=== PATIENT | male | born 1970 | race Caucasian/White ===

== ENCOUNTER 2017-07-06 14:10 | Inpatient (IN) | payer BC, OTHER ==
[2017-07-06] VITALS (9 sets, daily range): BP systolic 116–138; BP diastolic 58–87; PULSE 63–89; RESP 16–18; TEMP 97.5; Ht 170.2 cm; Wt 75.0 kg
[~2017-07-06] VITALS: Ht 170.2 cm; Wt 75.0 kg
[~2017-07-06 14:10] MED LIST: ABAC1TAB PO; ALBU8.5H3 IH; GABA300C PO; HYDR25TA6 PO; MIRT30TA PO; MULT1TAB59 PO; QUET50TA16 PO; TENO300T2 PO
[2017-07-06] MEDS ORDERED: SOD CHLORIDE 0.9% 1,000 ML IV STA (14:14)
[2017-07-06 14:47] LABS: ABNORMAL IP MESSAGE 1; BASOPHILS % 0.7 % (0.0-2.0); EOSINOPHILS # 0.4 10^3/ul (0.0-0.5); EOSINOPHILS % 7.6 % (0.0-7.0); HEMATOCRIT 25.4 % (42.0-52.0); MEAN CORPUSCULAR HEMOGLOBIN 19.8 pg (29.0-33.0); MEAN CORPUSCULAR HGB CONC 27.6 g/dl (32.0-37.0); MEAN PLATELET VOLUME 9.7 fl (7.4-10.4); MONOCYTE # 0.6 10^3/ul (0.3-0.9); MONOCYTES % 10.9 % (0.0-11.0); NEUTROPHILS % 43.6 % (39.0-77.0); PLATELET COUNT 84 10^3/UL (140-415); POSITIVE DIFF @See below; RED BLOOD COUNT 3.53 10^6/ul (4.70-6.10); RED CELL DISTRIBUTION WIDTH 22.8 % (11.5-14.5); WHITE BLOOD COUNT 5.5 10^3/ul (4.8-10.8)
[2017-07-06] MEDS ORDERED: SOD CHLORIDE 0.9% 250 ML IV ONE (14:53)
--- NOTE | 2017-07-06 14:59 | ERA ---
ER Documentation Chief Complaint Date/Time DATE: 07/06/17 TIME: 14:54 Chief Complaint BIB [facility] FOR ETOH. PT FOUND IN STREET WITH ALCOHOL BOTTLES NEAR BY HPI Patient is a 48-year-old and approximately 48-year-old male who presents altered. He was found in the street with alcohol bottles nearby. He was brought in by ambulance. History and physical exam is limited at this time secondary to patient's altered mental status. ROS All systems reviewed and are negative except as per history of present illness. Medications Home Meds Unable to Obtain Active Prescriptions or Reported Meds Allergies Allergies: Coded Allergies: Unknown: Unable to obtain (Unverified , 07/06/17) PT UNRESPONSIVE PMhx/Soc Medical and Surgical Hx: Unable to obtain Hx Alcohol Use: Yes Hx Substance Use: No Hx Tobacco Use: No Smoking Status: Unknown if ever smoked FmHx Unable to obtain Physical Exam Vitals Vital Signs Date Time Temp Pulse Resp B/P Pulse Ox O2 Delivery O2 Flow Rate FiO2 07/06/17 14:21 98.3 89 19 130/70 94 Physical Exam Const: Altered Head: Atraumatic Eyes: Normal Conjunctiva ENT: Normal External Ears, Nose and Mouth. Neck: Full range of motion..~ No meningismus. Resp: Clear to auscultation bilaterally Cardio: Regular rate and rhythm, no murmurs Abd: Soft, non tender, non distended. Normal bowel sounds Skin: No petechiae or rashes Back: No midline or flank tenderness Ext: No cyanosis, or edema Neur: Patient is altered and likely intoxicated, he does try to push away my hand with sternal rub Result Diagram: 07/06/17 1435 Results 24 hrs Laboratory Tests Test 07/06/17 14:35 White Blood Count 5.510^3/ul Red Blood Count 3.5310^6/ul Hemoglobin 7.0g/dl Hematocrit 25.4% Mean Corpuscular Volume 72.0fl Mean Corpuscular Hemoglobin 19.8pg Mean Corpuscular Hemoglobin Concent 27.6g/dl Red Cell Distribution Width 22.8% Platelet Count 8410^3/UL Mean Platelet Volume 9.7fl Neutrophils % 43.6% Lymphocytes % 37.0% Monocytes % 10.9% Eosinophils % 7.6% Basophils % 0.7% Nucleated Red Blood Cells % 0.0/100WBC Neutrophils # (Manual) 2.410^3/ul Lymphocytes # 2.010^3/ul Monocytes # 0.610^3/ul Eosinophils # 0.410^3/ul Basophils # 0.010^3/ul Nucleated Red Blood Cells # 0.010^3/ul Current Medications Medications (Trade) Dose Ordered Sig/Calixto Route PRN Reason Start Time Stop Time Status Last Admin Dose Admin Sodium Chloride (NS) 1,000 ml @ 1,000 mls/hr Q1H STAT IV 07/06/17 14:14 07/06/17 15:13 Procedures/MDM CT brain is pending at this time. Patient is an approximately 48-year-old male who presents altered. This is most likely due to alcohol intoxication and we will confirm with laboratory studies. However I am also concerned for potential intracranial hemorrhage and therefore a CT scan of the brain was ordered and is pending at this time. Routine laboratory studies the patient was found to have acute anemia with a hemoglobin of 7.0 and will need 2 units of packed red blood cells for transfusion. The patient will need admission to the hospital as well. The patient will be signed out the oncoming physician for final disposition and admission. Critical Care: Time: 35 minutes excluding all billable procedures. Treatments/Evaluations: Close monitoring and treatment of unstable vital signs, cardiorespiratory, and neurologic status, while maintaining tight balance of fluid, respiratory, and cardiac interventions. Departure Diagnosis: Primary Impression: Anemia Qualified Code: D64.9 - Anemia, unspecified type Additional Impressions: Alcoholic intoxication Qualified Code: F10.921 - Alcohol intoxication with delirium Altered mental status Qualified Code: R41.82 - Altered mental status, unspecified altered mental status type Condition: AMANDA Artis MD Jul 06, 2017 14:59
[2017-07-06 15:07] LABS: ACETAMINOPHEN < 10.0 ug/ml (10.0-30.0); ALANINE AMINOTRANSFERASE 37 IU/L (13-69); ALBUMIN 3.3 g/dl (3.3-4.9); ALBUMIN/GLOBULIN RATIO 0.86; ALKALINE PHOSPHATASE 90 IU/L (42-121); ANION GAP 14 (8-16); ASPARTATE AMINO TRANSFERASE 54 IU/L (15-46); BILIRUBIN,INDIRECT 0.2 mg/dl (0-1.1); BILIRUBIN,TOTAL 0.2 mg/dl (0.2-1.3); BLOOD UREA NITROGEN 5 mg/dl (7-20); CALCIUM 7.6 mg/dl (8.4-10.2); CARBON DIOXIDE 24 mmol/L (21-31); CHLORIDE 105 mmol/L (97-110); CREATININE 0.56 mg/dl (0.61-1.24); GLUCOSE 94 mg/dl (70-220); SALICYLATE < 1.0 mg/dl (5.0-30.0); SODIUM 140 mmol/L (135-144); TOTAL PROTEIN 7.1 g/dl (6.1-8.1)
--- NOTE | 2017-07-06 15:14 | RADRPT ---
PROCEDURE: CT Brain without contrast. CLINICAL INDICATION: Altered level of consciousness. TECHNIQUE: A CT of the brain was performed on a [employer] CT scanner utilizi ng a low dose technique with axial imaging from the skull base through the vertex without IV contras t. Multiplanar reformatted images were made. Images were reviewed on a PACS workstation. The CTDI vol is 43.5 mGy and the DLP is 720.2 mGycm. One or more of the following dose reduction techniques were used: - Automated exposure control. - Adjustment of the mA and/or kV according to patient size. Use of iterative reconstruction technique. COMPARISON: No. FINDINGS: The fourth ventricle is normal in size. The third lateral ventricles are dilated with proportional sulcal dilatation noted. There is encephalomalacia in the watershed zone between the distributions of the left middle cerebral artery and left posterior cerebral arteries. There are chronic small ve ssel ischemic changes in the periventricular white matter tracts adjacent to the lateral ventricles. No intracranial mass or hemorrhage is identified. The visible portions of the globes and extraocular muscles are normal. There is minimal mucosal thic kening in the ethmoid air cells. The remaining portions of the paranasal sinuses are clear. IMPRESSION: 1. Cerebral atrophy with encephalomalacia in the watershed zone in the dorsal left parietal and lef t occipital areas. 2. No acute cortical ischemic changes are identified and no intracranial hemorrhage or mass is note d. Findings were phoned to Dr. Clyde Ceballos at 03:10 p.m.. RPTAT:AAJJ Physician Artem Date Time Electronically viewed and signed by Physician Artem on 07/06/2017 15:14 ALANA/
[2017-07-06] MEDS ORDERED: ONDANSETRON 4 MG INJ IV PRN (15:30)
[2017-07-06] MEDS ORDERED: ACETAMINOPHEN 325 MG TAB PO PRN (15:30)
--- NOTE | 2017-07-06 15:35 | RADRPT ---
PROCEDURE: CT cervical spine without contrast. CLINICAL INDICATION: Neck pain TECHNIQUE: CT of the cervical spine without contrast was performed on a multidetector CT scanner, w ith multiplanar reformats. One or more of the following dose reduction techniques were used: Automa adarsh exposure control, adjustment in mA and / or kV according to patient size, use of iterative recon structive technique. CTDIvol = 22 mGy and DLP = 419 mGy-cm. COMPARISON: None available. FINDINGS: No fracture or dislocation is identified. There is straightening of the lordosis of the cervical sp ine. Alignment is intact. The vertebral bodies are maintained in height. There are anterior atla ntoaxial joint degenerative changes and anterior osteophytes at C3-4 through C7-T1. There is disk s pace narrowing, mild to moderate at C5-6 and C7-T1, mild at C6-7. C2-3: There is posterior disk bulging and facet arthropathy. There is no central canal stenosis or foraminal narrowing. C3-4: There is a posterior disk/osteophyte with mild central canal stenosis identified. There is f acet arthropathy without foraminal narrowing. C4-5: There is a posterior disk/osteophyte without central canal stenosis identified. There is face t arthropathy without foraminal narrowing. C5-6: There is posterior disk osteophyte without central canal stenosis identified. There are uncov ertebral osteophytes and facet arthropathy with moderate right foraminal narrowing. C6-7: There is a posterior disk/osteophyte with mild central canal stenosis identified. There are uncovertebral osteophytes and facet arthropathy with moderate to severe right, mild left foraminal n arrowing. C7-T1: No disk bulge or herniation is seen. There is no central canal stenosis. There are uncovert ebral osteophytes and facet arthropathy with moderate right foraminal narrowing. IMPRESSION: 1. No fracture/dislocation. 2. Cervical spondylosis/degenerative enthesopathy, with mild central canal stenosis identified at C 3-4 and C6-7, and multilevel foraminal narrowing detailed above. RPTAT: EE .Andrew Fierro MD, MD Date Time Electronically viewed and signed by .Andrew Fierro MD, on 07/06/2017 15:35 .O/
[2017-07-06] MEDS ORDERED: POTASSIUM CHLORIDE (SR) 20 MEQ TAB PO STA (16:20)
[2017-07-06] MEDS: FOLIC ACID 1 MG TAB PO SCH (16:30)
[2017-07-06 16:37] LABS: IRON 15 ug/dl (35-150)
[2017-07-06 16:46] LABS: TOTAL IRON BINDING CAPACITY 338 ug/dl (241-421)
--- NOTE | 2017-07-06 18:06 | HP ---
Date/Time of Note Date/Time of Note DATE: 07/06/17 TIME: 17:59 Assessment/Plan VTE Prophylaxis VTE Prophylaxis Intervention: contraindicated Assessment/Plan Chief Complaint/Hosp Course Middle aged male with unknown medical history presenting intoxicated and stuporous, found to have profound microcytic likely iron deficiency anemia and thrombocytopenia Anemia of iron deciency, thrombocytopenia: - Needs endoscopy to r/o GI bleeding - No stigmata of cirrhosis and LFTs not suggestive, will obtain abd US to look for radiographic evidence of cirrhosis/portal hypertension Etoh intoxication: - Supportive care - Monitor for withdrawal - Thiamine, folate, MVI Hypokalemia: - Replete K Alcoholic hepatitis: - Clinically mild, no need for steroids - Trend LFTs Dispo plan pending improvmeent in condition Problems: HPI/ROS Admit Date/Time Admit Date/Time Hx of Present Illness Patient is a middle aged male (48 per chart, but not clear) who was found intoxicated and obtunded on the street and subsequently brought to the ED. He is clearly intoxicated with alcohol. He is very somnulenet and unable to provide a coherent history, but is in no distress. His labs are notable for profound microcytic anemia for which he has been transfused PRBCs, as well as elevated etoh level and thrombocytopenia ROS Constitutional: improved, no complaints Eyes: no complaints ENT: no complaints Respiratory: no complaints Cardiovascular: no complaints Gastrointestinal: no complaints Genitourinary: no complaints Musculoskeletal: no complaints Skin: no complaints Neurologic: no complaints Endocrine: no complaints Lymphatic: no complaints Psychological: nl mood/affect, no complaints Immunologic: no complaints PMH/Family/Social Past Medical History Medical History: other Past Surgical History Past Surgical Hx: other Social History Alcohol Use: heavy Smoking Status: Unknown if ever smoked Exam/Review of Systems Vital Signs Vitals Vital Signs Date Time Temp Pulse Resp B/P Pulse Ox O2 Delivery O2 Flow Rate FiO2 07/06/17 14:21 98.3 89 19 130/70 94 Exam Exam Dishevelled, malodorous Stuporous, lethargic Breathing comfortably Easily arousable to noxious stimuli Wihtdraws to pain in all extremities Pupils reactive b/l No edema Abdomen is soft, nt, nd Bedside US shows no ascites No obvious stigmata of cirrhosis Labs Result Diagram: 07/06/17 1435 07/06/17 1435 Medications Medications Current Medications Thiamine HCl (Vitamin B1) 500 mg BID PO ; Start 07/06/17 at 21:00 Folic Acid (Folic Acid) 1 mg DAILY PO ; Start 07/06/17 at 16:30 Multivitamins Therapeutic (Theragran) 1 tab DAILY PO ; Start 07/07/17 at 09:00 ANAYA CONCEPCION MD Jul 06, 2017 18:06
[2017-07-06] MEDS ORDERED: POTASSIUM CHLORIDE 250 ML IVPB ONE (19:00)
[2017-07-06] MEDS: THIAMINE 100 MG TAB PO SCH (21:00)
[2017-07-06] MEDS ORDERED: LORAZEPAM 2 MG INJ IV PRN (21:30)
[2017-07-06] MEDS: SOD FERRIC GLUC COMPLX 125 MG in SOD CHLORIDE 0.9% 100 ML IVPB SCH (22:45)
[2017-07-06] MEDS: SOD CHLORIDE 0.9% 1,000 ML IV SCH (22:47)
[2017-07-07] VITALS (9 sets, daily range): BP systolic 123–212; BP diastolic 71–121; PULSE 80–109; RESP 18–20
[2017-07-07 05:32] LABS: ABNORMAL IP MESSAGE 1; BASOPHIL # 0.1 10^3/ul (0.0-0.1); BASOPHILS % 2.3 % (0.0-2.0); EOSINOPHILS # 0.3 10^3/ul (0.0-0.5); HEMATOCRIT 31.3 % (42.0-52.0); HEMOGLOBIN 8.8 g/dl (14.0-18.0); LYMPHOCYTES # 0.8 10^3/ul (0.8-2.9); LYMPHOCYTES % 29.3 % (15.0-51.0); MEAN CORPUSCULAR HEMOGLOBIN 21.1 pg (29.0-33.0); MEAN CORPUSCULAR HGB CONC 28.1 g/dl (32.0-37.0); MEAN CORPUSCULAR VOLUME 74.9 fl (82.0-101.0); MONOCYTE # 0.3 10^3/ul (0.3-0.9); MONOCYTES % 11.6 % (0.0-11.0); NEUTROPHILS % 46.4 % (39.0-77.0); PLATELET COUNT 80 10^3/UL (140-415); POSITIVE DIFF @See below; RED BLOOD COUNT 4.18 10^6/ul (4.70-6.10); RED CELL DISTRIBUTION WIDTH 22.7 % (11.5-14.5); WHITE BLOOD COUNT 2.6 10^3/ul (4.8-10.8)
[2017-07-07 05:39] LABS: INR 1.03; PROTIME 13.5 Sec (12.2-14.2); PT RATIO 1.1
[2017-07-07 05:46] LABS: ALBUMIN/GLOBULIN RATIO 0.83; BILIRUBIN,INDIRECT 0.3 mg/dl (0-1.1); BILIRUBIN,TOTAL 0.3 mg/dl (0.2-1.3); CALCIUM 7.4 mg/dl (8.4-10.2); CREATININE 0.54 mg/dl (0.61-1.24); POTASSIUM 4.2 mmol/L (3.5-5.1); TOTAL PROTEIN 6.6 g/dl (6.1-8.1)
[2017-07-07] MEDS: FOLIC ACID 1 MG TAB PO SCH (09:00)
[2017-07-07] MEDS: THIAMINE 100 MG TAB PO SCH ×2 (09:00→20:38)
[2017-07-07] MEDS ORDERED: MULTIVITAMINS THERAPEUTIC TAB PO SCH (09:00)
--- NOTE | 2017-07-07 09:32 | RADRPT ---
PROCEDURE: Right Upper Quadrant Ultrasound. CLINICAL INDICATION: Cirrhosis TECHNIQUE: Multiple real-time images were acquired of the patient's right upper quadrant abdomen a nd retroperitoneum utilizing a high resolution transducer. COMPARISON: None FINDINGS: The liver measures 13.5 cm, and demonstrates moderately increased echogenicity. The main portal vein is patent with proper directional flow. There is no intrahepatic biliary ductal dilatation. The ext rahepatic common bile duct measures 4 mm. There is cholelithiasis. There is no gallbladder wall thickening or pericholecystic fluid. The visualized pancreas is unremarkable. The right kidney measures 11.3 cm and demonstrates normal echotexture. There is no right hydronephro sis. There are shadowing echogenic lesions measuring up to 10 mm and 9 mm in the midpole of the right kid moustapha which may be nonobstructing calculi. There is a 2.1 cm simple cyst projecting off the midpole of the right kidney. There is a 2.2 cm simple cyst projecting off the mid to lower pole of the right kidney. The visualized abdominal aorta and IVC are grossly unremarkable. IMPRESSION: Moderate fatty infiltration of the liver. Cholelithiasis without evidence of acute cholecystitis. Normal CBD. Possible nonobstructing right renal calculi measuring up to 1 cm. No right hydronephrosis. Simple right renal cysts measuring up to 2.2 cm. RPTAT: EE Physician Soy Date Time Electronically viewed and signed by Physician Soy on 07/07/2017 09:32 /
[2017-07-07] MEDS: MULTIVITAMINS 10 ML, THIAMINE 100 MG, FOLIC ACID 1 MG in SOD CHLORIDE 0.9% 1,000 ML IVPB SCH (09:36)
[2017-07-07] MEDS: SOD CHLORIDE 0.9% 1,000 ML IV SCH ×2 (10:00→22:30)
--- NOTE | 2017-07-07 15:11 | PN ---
Date/Time of Note Date/Time of Note DATE: 07/07/17 TIME: 15:07 Assessment/Plan VTE Prophylaxis VTE Prophylaxis Intervention: contraindicated, LMWH Lines/Catheters IV [facility] (from [facility] Peripheral IV Urinary Cath still in place: No Assessment/Plan Chief Complaint/Hosp Course 48 y/o male with h/o HIV, etoh use disorder who presented intoxicated and stuporous, found to have profound microcytic likely iron deficiency anemia and thrombocytopenia Anemia of iron deciency - Needs endoscopy to r/o GI bleeding Pancytopenai w leukopenia, thrombocytopenia: - Likely a result of HIV infection, alcoholism - No evidence of cirrhosis on US HIV: - Need to determine home meds - Will send PCR and CD4 count Etoh intoxication: - Supportive care - Monitor for withdrawal - Thiamine, folate, MVI - Cessation was counseled Hypokalemia: - Repleted K, resolved Alcoholic hepatitis: - Clinically mild, no need for steroids - Trend LFTs - Fatty liver on imaging Dispo plan pending improvmeent in condition Problems: Subjective 24 Hr Interval Summary Free Text/Dictation Mentation improved today No longer lethargic Admits to drinking vodka daily Says he has HIV, takes ART, can't recall medication names Denies h/o bleeding, melena, hematochezia. Denies knowledge of liver disease Exam/Review of Systems Vital Signs Vitals Vital Signs Date Time Temp Pulse Resp B/P Pulse Ox O2 Delivery O2 Flow Rate FiO2 07/07/17 07:43 98.5 93 18 123/71 93 07/06/17 23:30 Nasal Cannula 2.0 Intake and Output 07/06/17 07/06/17 07/07/17 14:59 22:59 06:59 Intake Total 350 ml 1160 ml Balance 350 ml 1160 ml Exam Alert, disoriented, conversant, calm, pleasant RRR No edema Soft belly,nontender Breathing nonlabored No stigmata of cirrhosis Results Result Diagram: 07/07/17 0429 07/07/17 0429 Results 24 hrs Laboratory Tests Test 07/07/17 04:29 07/07/17 05:22 White Blood Count 2.6 #L Red Blood Count 4.18 L Hemoglobin 8.8 #L Hematocrit 31.3 #L Mean Corpuscular Volume 74.9 L Mean Corpuscular Hemoglobin 21.1 L Mean Corpuscular Hemoglobin Concent 28.1 L Red Cell Distribution Width 22.7 H Platelet Count 80 L Mean Platelet Volume Neutrophils % 46.4 Lymphocytes % 29.3 Monocytes % 11.6 H Eosinophils % 10.0 H Basophils % 2.3 H Nucleated Red Blood Cells % 0.0 Neutrophils # (Manual) 1.2 L Lymphocytes # 0.8 Monocytes # 0.3 Eosinophils # 0.3 Basophils # 0.1 Nucleated Red Blood Cells # 0.0 Prothrombin Time 13.5 Prothrombin Time Ratio 1.1 INR International Normalized Ratio 1.03 Sodium Level 146 H Potassium Level 4.2 Chloride Level 112 H Carbon Dioxide Level 25 Anion Gap 13 Blood Urea Nitrogen 3 L Creatinine 0.54 L Glucose Level 74 Calcium Level 7.4 L Total Bilirubin 0.3 Direct Bilirubin 0.00 Indirect Bilirubin 0.3 Aspartate Amino Transf (AST/SGOT) 62 H Alanine Aminotransferase (ALT/SGPT) 32 Alkaline Phosphatase 86 Total Protein 6.6 Albumin 3.0 L Globulin 3.60 H Albumin/Globulin Ratio 0.83 Lab Scanned Report BLOOD TRANSFUSION Medications Medications Current Medications Thiamine HCl (Vitamin B1) 500 mg BID PO ; Start 07/06/17 at 21:00 Folic Acid (Folic Acid) 1 mg DAILY PO ; Start 07/06/17 at 16:30 Multivitamins Therapeutic 1 tab 1 tab DAILY PO ; Start 07/07/17 at 09:00; Status Future Hold Ferric Sodium Gluconate Complex/ Sodium Chloride (Ferrlecit/NS) 110 ml @ 110 mls/hr Q24H IVPB Last administered on 07/06/17 22:45; Admin Dose 110 MLS/HR; Start 07/06/17 at 21:00; Stop 07/10/17 at 21:59 Lorazepam 1 mg 1 mg Q4 PRN IV CONTROL WITHDRAWAL SYMPTOMS; Start 07/06/17 at 21: 30 Sodium Chloride 1,000 ml @ 80 mls/hr [id number] IV Last administered on 07/06/17 22:47; Admin Dose 80 MLS/HR; Start 07/06/17 at 21:30 Multivitamins/ Thiamine HCl/ Folic Acid/Sodium Chloride (Mvi Adult/ Vitamin B1/ Folic Acid/NS) 1,011.2 ml @ 125 mls/ hr DAILY@09 IVPB Last administered on 07/07 09:36; Admin Dose 125 MLS/HR; Start 07/07/17 at 09:00 ANAYA CONCEPCION MD Jul 07, 2017 15:11
--- NOTE | 2017-07-07 19:11 | CONS ---
Date/Time of Note Date/Time of Note DATE: 07/07/17 TIME: 19:02 Assessment/Plan Assessment/Plan Additional Assessment/Plan Assessment: * Anemia/multifactorial * Rule out GI bleeding * Pancytopenia * HIV infection * Alcohol abuse * Alcohol intoxication Plan: * EGD tomorrow. Patient informed * Monitor H&H, transfuse as necessary Consultation Date/Type/Reason Admit Date/Time Date of Consultation: Jul 07, 2017 Hx of Present Illness Patient is a 48-year-old male who was hospitalized yesterday as Kam Stafford, severely intoxicated and unable to provide any history. He was found to have significant anemia requiring blood transfusion. There is no history of documentation of GI bleeding. This morning the patient while. He has a significant history for HIV infection which has been treated but the reliability of this information is questionable he also has been shown to have significant pancytopenia. There is still no evidence of gastrointestinal bleeding. There is clear evidence of alcoholic liver disease and chronic alcohol abuse. Patient will be evaluated endoscopically tomorrow Not obtainable Eyes: no complaints ENT: no complaints Respiratory: no complaints Cardiovascular: no complaints Gastrointestinal: no complaints Genitourinary: no complaints Musculoskeletal: no complaints Skin: no complaints Neurologic: no complaints Lymphatic: no complaints Psychological: nl mood/affect, no complaints Immunologic: no complaints Past Medical History HIV infection Alcohol abuse Medical History: other Past Surgical History Past Surgical Hx: no surgical history, other Family History Significant Family History: no pertinent family hx Social History Alcohol Use: heavy Smoking Status: Unknown if ever smoked Drug Use: other (None) Exam/Review of Systems Vital Signs Vitals Vital Signs Date Time Temp Pulse Resp B/P Pulse Ox O2 Delivery O2 Flow Rate FiO2 07/07/17 15:57 98.0 70 19 156/91 97 07/06/17 23:30 Nasal Cannula 2.0 Intake and Output 07/06/17 07/06/17 07/07/17 15:00 23:00 07:00 Intake Total 350 ml 1160 ml Balance 350 ml 1160 ml Exam Constitutional: alert, well developed, No distress, No oriented Head: normocephalic Neck: non-tender, supple Respiratory: clear to auscultation, normal air movement Cardiovascular: nl pulses, regular rate and rhythm Gastrointestinal: bowel sounds, distended, soft, No ascites, No firm, No tender Musculoskeletal: nl extremities to inspection Results Result Diagram: 07/07/17 0429 07/07/17 0429 Results 24 hrs Laboratory Tests Test 07/07/17 04:29 07/07/17 05:22 White Blood Count 2.6 #L Red Blood Count 4.18 L Hemoglobin 8.8 #L Hematocrit 31.3 #L Mean Corpuscular Volume 74.9 L Mean Corpuscular Hemoglobin 21.1 L Mean Corpuscular Hemoglobin Concent 28.1 L Red Cell Distribution Width 22.7 H Platelet Count 80 L Mean Platelet Volume Neutrophils % 46.4 Lymphocytes % 29.3 Monocytes % 11.6 H Eosinophils % 10.0 H Basophils % 2.3 H Nucleated Red Blood Cells % 0.0 Neutrophils # (Manual) 1.2 L Lymphocytes # 0.8 Monocytes # 0.3 Eosinophils # 0.3 Basophils # 0.1 Nucleated Red Blood Cells # 0.0 Prothrombin Time 13.5 Prothrombin Time Ratio 1.1 INR International Normalized Ratio 1.03 Sodium Level 146 H Potassium Level 4.2 Chloride Level 112 H Carbon Dioxide Level 25 Anion Gap 13 Blood Urea Nitrogen 3 L Creatinine 0.54 L Glucose Level 74 Calcium Level 7.4 L Total Bilirubin 0.3 Direct Bilirubin 0.00 Indirect Bilirubin 0.3 Aspartate Amino Transf (AST/SGOT) 62 H Alanine Aminotransferase (ALT/SGPT) 32 Alkaline Phosphatase 86 Total Protein 6.6 Albumin 3.0 L Globulin 3.60 H Albumin/Globulin Ratio 0.83 Lab Scanned Report BLOOD TRANSFUSION Medications Medications Current Medications Thiamine HCl (Vitamin B1) 500 mg BID PO ; Start 07/06/17 at 21:00 Folic Acid (Folic Acid) 1 mg DAILY PO ; Start 07/06/17 at 16:30 Multivitamins Therapeutic 1 tab 1 tab DAILY PO ; Start 07/07/17 at 09:00; Status Future Hold Ferric Sodium Gluconate Complex/ Sodium Chloride (Ferrlecit/NS) 110 ml @ 110 mls/hr Q24H IVPB Last administered on 07/06/17 22:45; Admin Dose 110 MLS/HR; Start 07/06/17 at 21:00; Stop 07/10/17 at 21:59 Lorazepam 1 mg 1 mg Q4 PRN IV CONTROL WITHDRAWAL SYMPTOMS; Start 07/06/17 at 21: 30 Sodium Chloride 1,000 ml @ 80 mls/hr [id number] IV Last administered on 07/06/17 22:47; Admin Dose 80 MLS/HR; Start 07/06/17 at 21:30 Multivitamins/ Thiamine HCl/ Folic Acid/Sodium Chloride (Mvi Adult/ Vitamin B1/ Folic Acid/NS) 1,011.2 ml @ 125 mls/ hr DAILY@09 IVPB Last administered on 07/07 09:36; Admin Dose 125 MLS/HR; Start 07/07/17 at 09:00 GIL SWENSON MD Jul 07, 2017 19:11
[2017-07-07] MEDS: SOD FERRIC GLUC COMPLX 125 MG in SOD CHLORIDE 0.9% 100 ML IVPB SCH (20:38)
[2017-07-07 21:55] LABS: ADD UMIC NO; UR ASCORBIC ACID NEGATIVE (NEGATIVE); UR BILIRUBIN (Dip) NEGATIVE (NEGATIVE); UR BLOOD (Dip) NEGATIVE (NEGATIVE); UR CLARITY CLEAR (CLEAR); UR COLOR YELLOW (YELLOW); UR GLUCOSE (Dip) NEGATIVE (NEGATIVE); UR KETONES (Dip) NEGATIVE (NEGATIVE); UR LEUKOCYTE ESTERASE (Dip) NEGATIVE Leu/ul (NEGATIVE); UR NITRITE (Dip) NEGATIVE (NEGATIVE); UR SPECIFIC GRAVITY (Dip) 1.004 (1.003-1.030); UR TOTAL PROTEIN (Dip) NEGATIVE (NEGATIVE); UR UROBILINOGEN (Dip) 2+ mg/dL (NEGATIVE)
[2017-07-07 22:14] LABS: CANNABINOIDS Negative (NEGATIVE)
[2017-07-07 22:17] LABS: BARBITURATES Negative (NEGATIVE); BENZODIAZEPINES Negative (NEGATIVE); COCAINE Negative (NEGATIVE); OPIATES Negative (NEGATIVE)
[2017-07-08] VITALS (12 sets, daily range): BP systolic 114–147; BP diastolic 61–93; PULSE 66–91; RESP 18–19
[2017-07-08] MEDS: CHLORDIAZEPOXIDE 25 MG CAP PO SCH ×4 (00:30→13:00)
[2017-07-08 07:43] LABS: ABNORMAL IP MESSAGE 1; BASOPHIL # 0.1 10^3/ul (0.0-0.1); BASOPHILS % 1.5 % (0.0-2.0); EOSINOPHILS # 0.3 10^3/ul (0.0-0.5); EOSINOPHILS % 6.7 % (0.0-7.0); HEMATOCRIT 35.6 % (42.0-52.0); HEMOGLOBIN 10.4 g/dl (14.0-18.0); LYMPHOCYTES % 20.6 % (15.0-51.0); MEAN CORPUSCULAR HEMOGLOBIN 21.6 pg (29.0-33.0); MEAN CORPUSCULAR HGB CONC 29.2 g/dl (32.0-37.0); MONOCYTE # 0.5 10^3/ul (0.3-0.9); MONOCYTES % 10.3 % (0.0-11.0); NEUTROPHILS % 60.7 % (39.0-77.0); PLATELET COUNT 57 10^3/UL (140-415); POSITIVE DIFF @See below; RED BLOOD COUNT 4.81 10^6/ul (4.70-6.10); RED CELL DISTRIBUTION WIDTH 22.6 % (11.5-14.5); WHITE BLOOD COUNT 4.8 10^3/ul (4.8-10.8)
[2017-07-08 08:15] LABS: ALANINE AMINOTRANSFERASE 35 IU/L (13-69); ALBUMIN 3.6 g/dl (3.3-4.9); ALBUMIN/GLOBULIN RATIO 0.94; ALKALINE PHOSPHATASE 138 IU/L (42-121); ANION GAP 8 (8-16); ASPARTATE AMINO TRANSFERASE 110 IU/L (15-46); BILIRUBIN,INDIRECT 0.9 mg/dl (0-1.1); BILIRUBIN,TOTAL 0.9 mg/dl (0.2-1.3); CALCIUM 8.9 mg/dl (8.4-10.2); CARBON DIOXIDE 28 mmol/L (21-31); CHLORIDE 100 mmol/L (97-110); CREATININE 0.56 mg/dl (0.61-1.24); GLUCOSE 91 mg/dl (70-220); POTASSIUM 3.9 mmol/L (3.5-5.1); SODIUM 132 mmol/L (135-144); TOTAL PROTEIN 7.4 g/dl (6.1-8.1)
[2017-07-08 08:29] LABS: BLOOD UREA NITROGEN < 2 mg/dl (7-20)
[2017-07-08] MEDS: NICOTINE (14 MG/24 HR) PATCH TRANSDERM SCH (09:32)
[2017-07-08] MEDS: FOLIC ACID 1 MG TAB PO SCH (09:32)
[2017-07-08] MEDS: THIAMINE 100 MG TAB PO SCH ×2 (09:33→21:05)
[2017-07-08] MEDS: MULTIVITAMINS 10 ML, THIAMINE 100 MG, FOLIC ACID 1 MG in SOD CHLORIDE 0.9% 1,000 ML IVPB SCH (09:36)
[2017-07-08] MEDS: SOD CHLORIDE 0.9% 1,000 ML IV SCH ×2 (11:00→23:30)
--- NOTE | 2017-07-08 14:15 | PN ---
Date/Time of Note Date/Time of Note DATE: 07/08/17 TIME: 14:13 Assessment/Plan VTE Prophylaxis VTE Prophylaxis Intervention: contraindicated Lines/Catheters IV Catheter Type (from [facility]): Saline Lock Urinary Cath still in place: No Assessment/Plan Chief Complaint/Hosp Course 47 y/o male with h/o HIV, etoh use disorder, HCV who presented intoxicated and stuporous, found to have profound microcytic likely iron deficiency anemia and thrombocytopenia, mental status improved as intoxication wears off, but encephelopathic vs dementia Anemia of iron deciency - Needs endoscopy to r/o GI bleeding however patient refusing - Continue IV iron Pancytopenia w leukopenia, thrombocytopenia: - Likely a result of HIV infection, alcoholism - No evidence of cirrhosis on US HIV: - Need to determine home meds - Will send PCR and CD4 count Hepatitis C: - Await PCR Etoh intoxication: - Supportive care - Monitor for withdrawal - Thiamine, folate, MVI - Cessation was counseled Hypokalemia: - Repleted K, resolved Alcoholic hepatitis: - Clinically mild, no need for steroids - Trend LFTs - Fatty liver on imaging Dispo plan pending improvmeent in condition Problems: Subjective 24 Hr Interval Summary Free Text/Dictation Patinet more alert today Refused EGD, no clear explanation why Requests to go home, but cant say where he is now or where his home is or how he would get there Exam/Review of Systems Vital Signs Vitals Vital Signs Date Time Temp Pulse Resp B/P Pulse Ox O2 Delivery O2 Flow Rate FiO2 07/08/17 12:25 91 07/08/17 11:54 98.5 19 114/61 98 07/06/17 23:30 Nasal Cannula 2.0 Intake and Output 07/07/17 07/07/17 07/08/17 14:59 22:59 06:59 Intake Total 3110 ml 540 ml Output Total 2500 ml 1030 ml Balance 610 ml -490 ml Exam ALert, calm, no distress Clearly cognitive impairment Oriented x 0 No signs of etoh withdrawal Constitutional: alert Psych: nl mood/affect, no complaints Head: atraumatic, normocephalic Eyes: EOMI, PERRL, nl conjunctiva, nl lids, nl sclera ENMT: nl external ears & nose, nl lips & teeth, nl nasal mucosa & septum Neck: non-tender, supple Respiratory: clear to auscultation, normal air movement Cardiovascular: nl pulses, regular rate and rhythm Gastrointestinal: nl liver, spleen, non-tender, soft Musculoskeletal: nl extremities to inspection, nl gait and stance Extremities: normal pulses Neurological: COOKER SYRUP II-XII intact, nl mental status, nl speech, nl strength Skin: nl turgor, No rash or lesions Lymph: nl lymph nodes Results Result Diagram: 07/08/17 0716 07/08/17 0716 Results 24 hrs Laboratory Tests Test 07/07/17 19:50 07/08/17 07:16 Urine Color YELLOW Urine Clarity CLEAR Urine pH 9.0 Urine Specific [place] 1.004 Urine Ketones NEGATIVE Urine Nitrite NEGATIVE Urine Bilirubin NEGATIVE Urine Urobilinogen 2+ H Urine Leukocyte Esterase NEGATIVE Urine Hemoglobin NEGATIVE Urine Glucose NEGATIVE Urine Total Protein NEGATIVE Urine Opiates Screen Negative Urine Barbiturates Negative Urine Amphetamines Screen Negative Urine Benzodiazepines Screen Negative Urine Cocaine Screen Negative Urine Cannabinoids Negative White Blood Count 4.8 # Red Blood Count 4.81 Hemoglobin 10.4 L Hematocrit 35.6 L Mean Corpuscular Volume 74.0 L Mean Corpuscular Hemoglobin 21.6 L Mean Corpuscular Hemoglobin Concent 29.2 L Red Cell Distribution Width 22.6 H Platelet Count 57 #L Mean Platelet Volume Neutrophils % 60.7 Lymphocytes % 20.6 Monocytes % 10.3 Eosinophils % 6.7 Basophils % 1.5 Nucleated Red Blood Cells % 0.0 Neutrophils # (Manual) 2.9 Lymphocytes # 1.0 Monocytes # 0.5 Eosinophils # 0.3 Basophils # 0.1 Nucleated Red Blood Cells # 0.0 Sodium Level 132 L Potassium Level 3.9 Chloride Level 100 # Carbon Dioxide Level 28 Anion Gap 8 Blood Urea Nitrogen < 2 L Creatinine 0.56 L Glucose Level 91 Calcium Level 8.9 Total Bilirubin 0.9 Direct Bilirubin 0.00 Indirect Bilirubin 0.9 Aspartate Amino Transf (AST/SGOT) 110 #H Alanine Aminotransferase (ALT/SGPT) 35 Alkaline Phosphatase 138 #H Total Protein 7.4 Albumin 3.6 Globulin 3.80 H Albumin/Globulin Ratio 0.94 Medications Medications Current Medications Thiamine HCl (Vitamin B1) 500 mg BID PO Last administered on 07/08/17 09:33; Admin Dose 500 MG; Start 07/06/17 at 21:00 Folic Acid (Folic Acid) 1 mg DAILY PO Last administered on 07/08/17 09:32; Admin Dose 1 MG; Start 07/06/17 at 16:30 Multivitamins Therapeutic 1 tab 1 tab DAILY PO ; Start 07/07/17 at 09:00; Status Future Hold Ferric Sodium Gluconate Complex/ Sodium Chloride (Ferrlecit/NS) 110 ml @ 110 mls/hr Q24H IVPB Last administered on 07/07/17 20:38; Admin Dose 110 MLS/HR; Start 07/06/17 at 21:00; Stop 07/10/17 at 21:59 Lorazepam 1 mg 1 mg Q4 PRN IV CONTROL WITHDRAWAL SYMPTOMS; Start 07/06/17 at 21: 30 Sodium Chloride 1,000 ml @ 80 mls/hr [id number] IV Last administered on 07/06/17 22:47; Admin Dose 80 MLS/HR; Start 07/06/17 at 21:30 Multivitamins/ Thiamine HCl/ Folic Acid/Sodium Chloride (Mvi Adult/ Vitamin B1/ Folic Acid/NS) 1,011.2 ml @ 125 mls/ hr DAILY@09 IVPB Last administered on 07/08 09:36; Admin Dose 125 MLS/HR; Start 07/07/17 at 09:00 Chlordiazepoxide (Librium) 50 mg TID PO Last administered on 07/08/17 09:32; Admin Dose 50 MG; Start 07/07/17 at 23:00; Stop 07/08/17 at 20:59 Chlordiazepoxide (Librium) 25 mg Q6 PO ; Start 07/09/17 at 00:00; Stop 07/09/17 at 23:59 Chlordiazepoxide (Librium) 25 mg TID PO ; Start 07/10/17 at 09:00; Stop 07/10/17 at 21:01 Nicotine (Nicoderm 14 Mg/ 24hr) 1 patch DAILY TRANSDERM Last administered on 09:32; Admin Dose 1 PATCH; Start 07/08/17 at 09:00 ANAYA CONCEPCION MD Jul 08, 2017 14:15
--- NOTE | 2017-07-08 17:56 | PN ---
Date/Time of Note Date/Time of Note DATE: 07/08/17 TIME: 17:53 Assessment/Plan VTE Prophylaxis VTE Prophylaxis Intervention: SCD's Lines/Catheters [facility] Saline Lock Urinary Cath still in place: No Assessment/Plan Assessment/Plan Assessment: * Anemia/multifactorial * Rule out GI bleeding * Pancytopenia * HIV infection * Alcohol abuse * Alcohol intoxication Plan: * Continue present regimen * We will sign off and follow as needed and upon request Subjective: Course reviewed with nursing staff Patient interviewed and examined All labs, imaging and other results reviewed The patient refused GI workup We will sign off and follow upon request Exam: General: well developed, well nourished, alert and oriented x3 , in no acute distress Skin: No lesions, no stigmata chronic liver disease, no evidence of bleeding diathesis Lymphatic: No palpable lymphadenopathy HEENT: No lesions Cardiovascular: Heart: Regular rate and rhythm, no murmurs, gallops or rubs. Peripheral pulses present within normal limits, no cyanosis, clubbing or edemas. No pulsatile abdominal mass Respiratory: Lungs clear to auscultation and percussion, no wheezing, no rubs Gastrointestinal and Liver: Abdomen: Soft, non tender, non-distended, no hernias , no masses, no organomegaly, no ascites, no guarding, no rebound tenderness, normoactive bowel sounds. Extremities: No cyanosis, clubbing, or edema. Diagnostic Studies: Available data and images were reviewed personally. See reports. Significant results and findings are addressed here or in the assessment and plan. Exam/Review of Systems Vital Signs Vitals Vital Signs Date Time Temp Pulse Resp B/P Pulse Ox O2 Delivery O2 Flow Rate FiO2 07/08/17 16:06 89 07/08/17 15:56 98.4 19 125/68 99 07/06/17 23:30 Nasal Cannula 2.0 Intake and Output 07/07/17 07/07/17 07/08/17 15:00 23:00 07:00 Intake Total 3110 ml 540 ml Output Total 2500 ml 1030 ml Balance 610 ml -490 ml Results Result Diagram: 07/08/17 0716 07/08/17 0716 Results 24 hrs Laboratory Tests Test 07/07/17 19:50 07/08/17 07:16 Urine Color YELLOW Urine Clarity CLEAR Urine pH 9.0 Urine Specific [place] 1.004 Urine Ketones NEGATIVE Urine Nitrite NEGATIVE Urine Bilirubin NEGATIVE Urine Urobilinogen 2+ H Urine Leukocyte Esterase NEGATIVE Urine Hemoglobin NEGATIVE Urine Glucose NEGATIVE Urine Total Protein NEGATIVE Urine Opiates Screen Negative Urine Barbiturates Negative Urine Amphetamines Screen Negative Urine Benzodiazepines Screen Negative Urine Cocaine Screen Negative Urine Cannabinoids Negative White Blood Count 4.8 # Red Blood Count 4.81 Hemoglobin 10.4 L Hematocrit 35.6 L Mean Corpuscular Volume 74.0 L Mean Corpuscular Hemoglobin 21.6 L Mean Corpuscular Hemoglobin Concent 29.2 L Red Cell Distribution Width 22.6 H Platelet Count 57 #L Mean Platelet Volume Neutrophils % 60.7 Lymphocytes % 20.6 Monocytes % 10.3 Eosinophils % 6.7 Basophils % 1.5 Nucleated Red Blood Cells % 0.0 Neutrophils # (Manual) 2.9 Lymphocytes # 1.0 Monocytes # 0.5 Eosinophils # 0.3 Basophils # 0.1 Nucleated Red Blood Cells # 0.0 Sodium Level 132 L Potassium Level 3.9 Chloride Level 100 # Carbon Dioxide Level 28 Anion Gap 8 Blood Urea Nitrogen < 2 L Creatinine 0.56 L Glucose Level 91 Calcium Level 8.9 Total Bilirubin 0.9 Direct Bilirubin 0.00 Indirect Bilirubin 0.9 Aspartate Amino Transf (AST/SGOT) 110 #H Alanine Aminotransferase (ALT/SGPT) 35 Alkaline Phosphatase 138 #H Total Protein 7.4 Albumin 3.6 Globulin 3.80 H Albumin/Globulin Ratio 0.94 Medications Medications Current Medications Thiamine HCl (Vitamin B1) 500 mg BID PO Last administered on 07/08/17 09:33; Admin Dose 500 MG; Start 07/06/17 at 21:00 Folic Acid (Folic Acid) 1 mg DAILY PO Last administered on 07/08/17 09:32; Admin Dose 1 MG; Start 07/06/17 at 16:30 Multivitamins Therapeutic 1 tab 1 tab DAILY PO ; Start 07/07/17 at 09:00; Status Future Hold Ferric Sodium Gluconate Complex/ Sodium Chloride (Ferrlecit/NS) 110 ml @ 110 mls/hr Q24H IVPB Last administered on 07/07/17 20:38; Admin Dose 110 MLS/HR; Start 07/06/17 at 21:00; Stop 07/10/17 at 21:59 Lorazepam 1 mg 1 mg Q4 PRN IV CONTROL WITHDRAWAL SYMPTOMS; Start 07/06/17 at 21: 30 Sodium Chloride 1,000 ml @ 80 mls/hr [id number] IV Last administered on 07/06/17 22:47; Admin Dose 80 MLS/HR; Start 07/06/17 at 21:30 Multivitamins/ Thiamine HCl/ Folic Acid/Sodium Chloride (Mvi Adult/ Vitamin B1/ Folic Acid/NS) 1,011.2 ml @ 125 mls/ hr DAILY@09 IVPB Last administered on 07/08 09:36; Admin Dose 125 MLS/HR; Start 07/07/17 at 09:00 Chlordiazepoxide (Librium) 50 mg TID PO Last administered on 07/08/17 09:32; Admin Dose 50 MG; Start 07/07/17 at 23:00; Stop 07/08/17 at 20:59 Chlordiazepoxide (Librium) 25 mg Q6 PO ; Start 07/09/17 at 00:00; Stop 07/09/17 at 23:59 Chlordiazepoxide (Librium) 25 mg TID PO ; Start 07/10/17 at 09:00; Stop 07/10/17 at 21:01 Nicotine (Nicoderm 14 Mg/ 24hr) 1 patch DAILY TRANSDERM Last administered on 09:32; Admin Dose 1 PATCH; Start 07/08/17 at 09:00 GIL SWENSON MD Jul 08, 2017 17:56
[2017-07-08] MEDS: SOD FERRIC GLUC COMPLX 125 MG in SOD CHLORIDE 0.9% 100 ML IVPB SCH (21:05)
[2017-07-09] VITALS (8 sets, daily range): BP systolic 131–145; BP diastolic 61–89; PULSE 71–93; RESP 17–18
[2017-07-09] MEDS: CHLORDIAZEPOXIDE 25 MG CAP PO SCH ×2 (01:13→06:02)
[2017-07-09] MEDS: SOD CHLORIDE 0.9% 1,000 ML IV SCH (06:09)
[2017-07-09] MEDS: MULTIVITAMINS 10 ML, THIAMINE 100 MG, FOLIC ACID 1 MG in SOD CHLORIDE 0.9% 1,000 ML IVPB SCH (08:47)
[2017-07-09] MEDS: FOLIC ACID 1 MG TAB PO SCH (08:47)
[2017-07-09] MEDS: THIAMINE 100 MG TAB PO SCH (08:47)
[2017-07-09] MEDS: NICOTINE (14 MG/24 HR) PATCH TRANSDERM SCH (08:48)
[2017-07-09 10:51] LABS: LYMPHOCYTE - CD4/CD8 RATIO 1.57 (0.86-5.00)
--- NOTE | 2017-07-09 14:17 | PDOCDIS ---
Discharge Instructions CONDITION Patient Condition: Good HOME CARE INSTRUCTIONS: Diet Instructions: RegularSpecial Diet: REGULAR FOLLOW UP/APPOINTMENTS Follow-up Plan It is very important for you to continue taking your HIV medications forever You have been diagnosed with iron defiency anemia this admission. Most likely, this is due to blood loss from the intestinal track. Though you did not want to undergo endoscopy during this admission, it is still very important to consider doing so because you may have a serious underlying condition. Please take to your doctor about this. If you develop any bleeding in your stool come to the hospital. You should also take an iron supplement daily It is extremely important that you stop drinking alcohol as well ANAYA CONCEPCION MD Jul 09, 2017 14:17
--- NOTE | 2017-07-09 18:07 | DS ---
Date/Time of Note Date/Time of Note DATE: 07/09/17 TIME: 18:04 Discharge Summary Admission/Discharge Info Admit Date/Time Jul 06, 2017 at 15:14 Discharge Date/Time Hx of Present Illness Patient is a middle aged male (48 per chart, but not clear) who was found intoxicated and obtunded on the street and subsequently brought to the ED. He is clearly intoxicated with alcohol. He is very somnulenet and unable to provide a coherent history, but is in no distress. His labs are notable for profound microcytic anemia for which he has been transfused PRBCs, as well as elevated etoh level and thrombocytopenia Hospital Course On presentation, the patient was acutely intoxicated and unable to answer questions. Over the following days his mental status cleared to his baseline. He was found to have a chronic iron deficiency anemia, though denied any recent history of melena, etc that he had noticed. Gastroenterology was consulted who recommended EGD to evaluate. He refuse this procedure. He was given IV iron suppelmentation. He requested to be discharged. I was nervous about him leaving the hospital alone. His mother was contacted who came to the hospital to take him home with her. Home Meds Reported Medications Mirtazapine* (Remeron*) 30 Mg Tablet, 30 MG PO DAILY 01/25/13 Albuterol Sulfate* (Proair HFA*) 8.5 Gm Hfa.aer.ad, 8.5 GM IH DAILY 01/25/13 Multivitamins* (Multivitamins*) 1 Tab Tablet, 1 TAB PO DAILY 01/25/13 Gabapentin* (Neurontin*) 300 Mg Capsule, 300 MG PO DAILY 01/25/13 Tenofovir Disoproxil Fumarate (Viread) 300 Mg Tablet, 300 MG PO DAILY 03/30/12 Hydrochlorothiazide (Hydrochlorothiazide) 25 Mg Tablet, 25 MG PO DAILY 03/30/12 Abacavir/Lamivudine/Zidovudine* (Trizivir*) 1 Tab Tab, 1 TAB PO BID 03/30/12 Quetiapine Fumarate* (Seroquel*) 50 Mg Tablet, 75 MG PO HS 03/30/12 Primary Care Provider Time spent on discharge: > 30 minutes ANAYA CONCEPCION MD Jul 09, 2017 18:07
[2017-07-10] MEDS ORDERED: CHLORDIAZEPOXIDE 25 MG CAP PO SCH (09:00)
== END 2017-07-09 20:30 | disposition home or self-care (01) | DRG 812 ==
LOC: EDBD → E/R 14:10 → MS1 15:14 → MERGE 15:14 → MS4 07-07 23:31
PROVIDERS: ADMIT Internal Medicine; ATTEND Internal Medicine
PROC: 30233N1 Transfusion of Nonautologous Red Blood Cells into Peripheral Vein, Percutaneous Approach (ICD-10-PCS; principal; 2017-07-06)
DX: D50.9 Iron deficiency anemia, unspecified (principal); D61.818 Other pancytopenia; K70.10 Alcoholic hepatitis without ascites; F10.129 Alcohol abuse with intoxication, unspecified; B18.2 Chronic viral hepatitis C; E87.6 Hypokalemia
CPT/HCPCS: 36430; 70450; 72125; 76705; 80053; 80306; 80307; 81003; 82728; 83540; 85025; 85610; 86360; 86701; 86703; 86803; 86850; 86900; 86901; 86920; 87536; J2916; J3411; J3480; J7030; J7040; P9016

== ENCOUNTER 2017-08-26 00:05 | Emergency (ER) | payer BC ==
[~2017-08-26] VITALS: Ht 170.2 cm; Wt 75.0 kg
[2017-08-26 00:06] VITALS: Ht 170.2 cm; Wt 75.0 kg
--- NOTE | 2017-08-26 01:32 | RADRPT ---
PROCEDURE: CT head, without contrast. CLINICAL INDICATION: Fall. Ethanol abuse. TECHNIQUE: Noncontrast CT examination of the head, with axial, sagittal and coronal reformatted im ages. Automated dose exposure control was employed. CTDI: 45.01 and DLP: 720.23. COMPARISON: CT examination the head dated 07/03/2015. 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 This is increased over the interval since 07/03/2015, previously measu ring up to about 27 mm, and now measuring up to 42 mm. The ventricles are otherwise unremarkable. Mild degree of chronic atrophy is greater than expected for patient age. No acute hemorrhage. Subarachnoid spaces are substantially preserved and symmetric. No mass effect. Burrows-white matter distinction is preserved without evident decreased attenuation t o suggest acute or recent infarct. Sinuses and osseous structures are unremarkable. IMPRESSION: 1. 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 2. Mild chronic atrophy is greater than expected for patient age. 3. Otherwise, no acute process in the head. RPTAT: [facility] Physician Kasi Date Time Electronically viewed and signed by Physician Kasi on 08/26/2017 01:32 RS/
--- NOTE | 2017-08-26 02:04 | ERD ---
ER Documentation Chief Complaint Chief Complaint HPI 47-year-old male who comes in with complaints of alcohol intoxication. He was found down on the ground. Denies any trauma. Denies any other current issues. Limited history secondary patient's intoxication ROS All systems reviewed and are negative except as per history of present illness. Medications Home Meds Reported Medications Mirtazapine* (Remeron*) 30 Mg Tablet, 30 MG PO DAILY 01/25/13 Albuterol Sulfate* (Proair HFA*) 8.5 Gm Hfa.aer.ad, 8.5 GM IH DAILY 01/25/13 Multivitamins* (Multivitamins*) 1 Tab Tablet, 1 TAB PO DAILY 01/25/13 Gabapentin* (Neurontin*) 300 Mg Capsule, 300 MG PO DAILY 01/25/13 Tenofovir Disoproxil Fumarate (Viread) 300 Mg Tablet, 300 MG PO DAILY 03/30/12 Hydrochlorothiazide (Hydrochlorothiazide) 25 Mg Tablet, 25 MG PO DAILY 03/30/12 Abacavir/Lamivudine/Zidovudine* (Trizivir*) 1 Tab Tab, 1 TAB PO BID 03/30/12 Quetiapine Fumarate* (Seroquel*) 50 Mg Tablet, 75 MG PO HS 03/30/12 Allergies Allergies: Coded Allergies: Penicillins (Verified Allergy, Unknown, HIVES, 07/03/15) PMhx/Soc History of Surgery: No Anesthesia Reaction: No Hx Neurological Disorder: No Hx Respiratory Disorders: Yes (ASTHMA) Hx Cardiac Disorders: Yes (HTN) Hx Psychiatric Problems: No Hx Miscellaneous Medical Probl: Yes (alcohol abuse) Hx Alcohol Use: Yes (vodka tonight) Hx Substance Use: No Hx Tobacco Use: No Smoking Status: Unknown if ever smoked Physical Exam Physical Exam Const: [] Head: Atraumatic Eyes: Normal Conjunctiva ENT: Normal External Ears, Nose and Mouth. Neck: Full range of motion..~ No meningismus. Resp: Clear to auscultation bilaterally Cardio: Regular rate and rhythm, no murmurs Abd: Soft, non tender, non distended. Normal bowel sounds Skin: No petechiae or rashes Back: No midline or flank tenderness Ext: No cyanosis, or edema Neur: Awake and alert Psych: Normal Mood and Affect Procedures/MDM Medical decision-m[age] year male with acute alcohol intoxication. At this point clinically stable for outpatient management. Patient be discharged home. He has been advised to stop drinking. Departure Diagnosis: Primary Impression: Alcoholic intoxication Complication of substance-induced condition: uncomplicated Qualified Code: F10.920 - Alcoholic intoxication without complication Condition: Stable DURGA MELGAR Aug 26, 2017 02:04
[2017-08-26 04:00] VITALS: TEMP 97.9
[2017-08-26 10:44] VITALS: BP 130/78; PULSE 75; RESP 17
== END 2017-08-26 10:45 | disposition home or self-care (01) ==
LOC: E/R 00:05
DX: F10.920 Alcohol use, unspecified with intoxication, uncomplicated (principal); I10 Essential (primary) hypertension; J45.909 Unspecified asthma, uncomplicated; R51 Headache
CPT/HCPCS: 70450